=== PATIENT | male | born 2000 | race Caucasian/White ===

== ENCOUNTER 2023-12-10 17:52 | Emergency (ER) | payer OTHER, SELFPAY ==
--- NOTE | ~2023-12-10 | XR_ITS ---
EXAMINATION: XR ankle RT min 3V, XR foot RT min 3V DATE: 12/10/2023 18:36 INDICATION: Right foot and ankle pain post fall TECHNIQUE: 1. Anteroposterior, mortise, additional oblique and lateral view of the right ankle were obtained. 2. Dorsoplantar, two oblique and lateral views of the right foot were obtained. COMPARISON: None. FINDINGS: Alignment of the foot and ankle is normal with nondisplaced extra axial diaphyseal fracture at the ri ght fifth metatarsal with fracture line approximately 2.8 cm from the proximal tip of the lateral tub erosity. No other fractures identified. Joint spaces are well maintained. No ankle joint effusion. So ft tissue swelling at the lateral aspect of the forefoot. IMPRESSION: 1. Nondisplaced extra-articular fracture at the proximal metadiaphysis of the right fifth metatarsal (Gay fracture). Reviewed, dictated and finalized at location A. IMPRESSION: 1. Nondisplaced extra-articular fracture at the proximal metadiaphysis of the r ight fifth metatarsal (Gay fracture).
[2023-12-10 18:06] VITALS: BP 152/93; PULSE 88; RESP 16; TEMP 36.6; O2SAT 97
--- NOTE | 2023-12-10 18:09 | ED.LOWEXIN ---
HPI - Extremity Injury (Lower) General Chief Complaint: Extremity Injury, Lower Stated Complaint: R foot injury Time Seen by Provider: 12/10/23 18:08 Source: patient Mode of arrival: ambulatory Limitations: no limitations History of Present Illness HPI Narrative: Patient is a 23-year-old male who presents the ED with report of right foot pain. Patient reports he tripped and fell on the stairs and rolled his right foot. He complains of pain to his medial and lateral plantar edges of his right foot. Denies significant ankle pain. He is still able to ambulate, but has some pain with this. 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 Denies numbness. Denies HI/LOC Related Data Allergies Allergy/AdvReac Type Severity Reaction Status Date / Time No Known Allergies Allergy Verified 12/10/23 18:08 Review of Systems Review of Systems: CONSTITUTIONAL: Denies fever, chills, or sweats. MUSCULOSKELETAL: See HPI NEUROLOGIC: Denies headache, dizziness, numbness, or weakness. All systems reviewed & are unremarkable except as noted in HPI and below Exam Narrative: GENERAL: Well appearing, obese with BMI of 37.7, non-toxic, in no acute distress. HEAD: Normocephalic, atraumatic. RESPIRATORY: Airway patent, respirations nonlabored. CARDIOVASCULAR: Regular rate and rhythm. Peripheral pulses intact. ABDOMINAL: Soft, nontender, nondistended. Normoactive BS. MUSCULOSKELETAL: Moves all extremities. No gross deformities. Mild tenderness palpation in medial arch on the plantar surface of right foot. Small amount of ecchymosis in this area. TTP along proximal 5th MT on plantar surface. No significant tenderness to medial or lateral malleoli. Sensation intact. SKIN: Warm, dry, normal color. NEURO: A&O X3. Speech clear. PSYCHIATRIC: Appropriate mood and affect. Normal interaction. Course Vital Signs Vital signs: Vital Signs Temperature 97.9 F 12/10/23 18:06 Pulse Rate 88 12/10/23 18:06 Respiratory Rate 16 12/10/23 18:06 Blood Pressure 152/93 H 12/10/23 18:06 Pulse Oximetry 97 12/10/23 18:06 Oxygen Delivery Room Air 12/10/23 18:06 Temperature 97.9 F 12/10/23 18:06 Pulse Rate 88 12/10/23 18:06 Respiratory Rate 16 12/10/23 18:06 Blood Pressure 152/93 H 12/10/23 18:06 Pulse Oximetry 97 12/10/23 18:06 Oxygen Delivery Room Air 12/10/23 18:06 MDM - Extremity Injury (Lower) MDM Narrative Medical decision making narrative: Patient?s injury is consistent with musculoskeletal etiology. No signs of neurologic or vascular compromise on physical examination. Compartments are soft without signs of compartment syndrome. XR showing evidence of Gay fracture. Pain is consistent with exam and injury. Patient is felt to be stable for discharge home and further outpatient management and treatment. Placed in short leg posterior splint here. Given crutches. Discussed the importance of being nonweightbearing. Discussed follow-up with Orthopedics, Pain Management, rice therapy. Patient given work note. Given strict return precautions. He agrees with plan. Discharged in stable condition. Medical Records Attestation: I reviewed the patient's medical records. Imaging Data Attestation: I personally reviewed and interpreted this imaging study as follows: Radiologist's impression: ITS Impressions Ankle X-Ray 12/10/23 18:47 IMPRESSION: 1. Nondisplaced extra-articular fracture at the proximal metadiaphysis of the right fifth metatarsal (Gay fracture). Foot X-Ray 12/10/23 18:47 IMPRESSION: 1. Nondisplaced extra-articular fracture at the proximal metadiaphysis of the right fifth metatarsal (Gay fracture). Discharge Plan Discharge Clinical Impression: Fracture of fifth metatarsal bone of right foot Qualifiers: Encounter type: initial encounter Fracture type: closed Fracture alignment: nondisplaced Qualified Code(s): S92.354A - Nondisplaced fracture of
[2023-12-10 20:16] VITALS: BP 153/89; PULSE 78; RESP 18; O2SAT 98
== END 2023-12-10 20:17 | disposition home or self-care (01) ==
PROVIDERS: Emergency Provider Physician Assistant
DX: S92.354A Nondisplaced fracture of fifth metatarsal bone, right foot, initial encounter for closed fracture (principal); W10.9XXA Fall (on) (from) unspecified stairs and steps, initial encounter
CPT/HCPCS: 29515; 73610; 73630; 99284